=== PATIENT | male | born 1945 | race Caucasian/White ===

== ENCOUNTER 2017-01-22 16:39 | Inpatient (IN) | payer OTHER ==
[~2017-01-22] VITALS: Ht 182.9 cm; Wt 104.7 kg
[~2017-01-22 16:39] MED LIST: ASCORBIC ACID500 M3 PO; DITROPAN5 MG PO; TYLENOL W/COD1 COMBO PO; VALIUM5 MG PO
[2017-01-22 20:05] LABS: EOSINOPHIL (%) 1.5 % (0-5); EOSINOPHIL COUNT 0.2 K/uL (0-0.3); HEMATOCRIT 28.8 % (38.0-50.0); IMMATURE GRANULOCYTE (%) 1.5 % (0.0-0.7); IMMATURE GRANULOCYTE COUNT 0.2 K/uL; INSTRUMENT ABS NEUTROPHIL CT 10.9 K/uL; LYMPHOCYTE COUNT 0.9 K/uL (1.0-2.8); MCH 28.2 PG (29.0-34.0); MCHC 31.6 G/DL (30.0-36.0); MCV 89.2 FL (86-99); MEAN PLAT.VOLUME 9.3 uM^3 (9.0-12.4); MONOCYTE (%) 4.9 % (3-12); MONOCYTE COUNT 0.6 K/uL (0-0.8); NEUTROPHIL (%) 84.6 % (45-76); NEUTROPHIL COUNT 10.9 K/uL (1.8-6.4); PLATELET COUNT 210 K/uL (156-360); RBC DIS.WIDTH-CV 14.6 % (11.8-14.6); RBC DIS.WIDTH-SD 48.2 % (39-53); RED BLOOD COUNT 3.23 M/uL (4.00-5.50); WHITE BLOOD COUNT 12.9 K/uL (4.1-10.2)
[2017-01-22 20:15] LABS: CHLORIDE 111 mEq/L (99-109); POTASSIUM 3.8 mEq/L (3.7-5.4); SODIUM 137 mEq/L (136-147)
[2017-01-22 20:17] LABS: GLUCOSE 107 mg/dL (70-99)
[2017-01-22 20:18] LABS: ANION GAP 11 MEQ/L (2-14)
[2017-01-22 20:21] LABS: GFR ESTIMATE (CALCULATED) 30 mL/min/
[2017-01-22 20:22] LABS: UREA NITROGEN (BUN) 74 mg/dL (9-23)
[2017-01-22 20:28] LABS: TROP-I INTERPRETATION NEGATIVE; TROPONIN-I 0.08 ng/mL (0.0-0.30)
[2017-01-22 21:40] LABS: ADD MIUA? YES; BILIRUBIN NEGATIVE; BLOOD MODERATE; GLUCOSE (STRIP) NEGATIVE; KETONES NEGATIVE; LEUKOCYTES LARGE; NITRITE NEGATIVE; PROTEIN (STRIP) 100; UROBILINOGEN 0.2 MG/DL (0.2-1.0)
[2017-01-22 21:41] LABS: COLOR YELLOW ((YELLOW))
[2017-01-22 21:42] LABS: BACTERIA 4+ /HPF; CRYSTALS PRESENT; EPITHELIAL CELLS NONE SEEN /HPF; MUCUS NONE SEEN /LPF; UCUL ADDED? YES; WHITE BLOOD CELLS TNTC /HPF (0-5)
[2017-01-22 22:45] VITALS: BP 108/60
[2017-01-22 23:00] VITALS: BP 108/60
[2017-01-22] MEDS ORDERED: PANTOPRAZOLE SO40 MG PO (23:28)
[2017-01-22] MEDS ORDERED: SIMETHICONE80 MG PO (23:29)
[2017-01-22 23:30] VITALS: BP 94/43
[2017-01-22] MEDS ORDERED: GABAPENTIN400 MG PO (23:30)
[2017-01-22] MEDS ORDERED: AMLODIPINE BESY10 MG PO (23:30)
[2017-01-22] MEDS ORDERED: RANITIDINE HCL150 MG PO (23:31)
[2017-01-22] MEDS ORDERED: COLACE100 MG PO (23:32)
[2017-01-23] VITALS (15 sets, daily range): BP systolic 74–116; BP diastolic 47–68
[2017-01-23 00:39] LABS: METH RESISTANT S AUREUS PCR POSITIVE (NEGATIVE)
[2017-01-23 00:41] LABS: PROBE CHECK PASS
[2017-01-23 07:03] LABS: ANION GAP 10 MEQ/L (2-14); CHLORIDE 113 MEQ/L (99-109); MAGNESIUM 2.1 mg/dl (1.3-2.7); POTASSIUM 4.1 MEQ/L (3.7-5.4); SAMPLE HEMOLYSIS CHECK 0; SAMPLE ICTERIC CHECK 0; SAMPLE LIPEMIA CHECK 0; SODIUM 140 MEQ/L (136-147)
[2017-01-23 07:05] LABS: HEMATOCRIT 35.9 % (38.0-50.0); MCH 28.2 PG (29.0-34.0); MCHC 30.9 G/DL (30.0-36.0); MCV 91.1 FL (86-99); MEAN PLAT.VOLUME 9.4 uM^3 (9.0-12.4); PLATELET COUNT 222 K/uL (156-360); RBC DIS.WIDTH-CV 14.8 % (11.8-14.6); RBC DIS.WIDTH-SD 49.5 % (39-53); RED BLOOD COUNT 3.94 M/uL (4.00-5.50); WHITE BLOOD COUNT 13.3 K/uL (4.1-10.2)
[2017-01-23 07:09] LABS: GFR ESTIMATE (CALCULATED) 30 mL/min/; GLUCOSE 93 mg/dL (70-99); UREA NITROGEN (BUN) 72 mg/dL (9-23)
[2017-01-23 21:03] LABS: ANION GAP 10 MEQ/L (2-14); CHLORIDE 116 MEQ/L (99-109); POTASSIUM 4.5 MEQ/L (3.7-5.4); SAMPLE HEMOLYSIS CHECK 1; SAMPLE ICTERIC CHECK 0; SAMPLE LIPEMIA CHECK 0; SODIUM 140 MEQ/L (136-147)
[2017-01-23 21:09] LABS: GFR ESTIMATE (CALCULATED) 35 mL/min/; GLUCOSE 138 mg/dL (70-99); UREA NITROGEN (BUN) 67 mg/dL (9-23)
[2017-01-24 03:03] VITALS: BP 128/63
[2017-01-24 06:27] LABS: EOSINOPHIL (%) 2.6 % (0-5); EOSINOPHIL COUNT 0.2 K/uL (0-0.3); HEMATOCRIT 29.9 % (38.0-50.0); IMMATURE GRANULOCYTE COUNT 0.2 K/uL; INSTRUMENT ABS NEUTROPHIL CT 6.3 K/uL; LYMPHOCYTE COUNT 0.9 K/uL (1.0-2.8); MCHC 31.4 G/DL (30.0-36.0); MCV 92.3 FL (86-99); MEAN PLAT.VOLUME 9.2 uM^3 (9.0-12.4); MONOCYTE (%) 5.4 % (3-12); MONOCYTE COUNT 0.4 K/uL (0-0.8); NEUTROPHIL (%) 78.3 % (45-76); NEUTROPHIL COUNT 6.3 K/uL (1.8-6.4); PLATELET COUNT 216 K/uL (156-360); RBC DIS.WIDTH-CV 15.2 % (11.8-14.6); RBC DIS.WIDTH-SD 51.2 % (39-53); RED BLOOD COUNT 3.24 M/uL (4.00-5.50)
[2017-01-24 06:51] LABS: ANION GAP 9 MEQ/L (2-14); CHLORIDE 121 MEQ/L (99-109); GFR ESTIMATE (CALCULATED) 35 mL/min/; GLUCOSE 107 mg/dL (70-99); POTASSIUM 4.2 MEQ/L (3.7-5.4); SAMPLE HEMOLYSIS CHECK 0; SAMPLE ICTERIC CHECK 0; SAMPLE LIPEMIA CHECK 0; SODIUM 146 MEQ/L (136-147); UREA NITROGEN (BUN) 66 mg/dL (9-23)
[2017-01-24 07:44] VITALS: BP 132/78
[2017-01-24 12:01] VITALS: BP 109/59
[2017-01-24 15:40] VITALS: BP 122/71
[2017-01-24 20:29] VITALS: BP 110/60
[2017-01-25 06:44] LABS: BASOPHIL COUNT 0.1 K/uL (0-0.1); EOSINOPHIL (%) 3.9 % (0-5); EOSINOPHIL COUNT 0.3 K/uL (0-0.3); HEMATOCRIT 32.3 % (38.0-50.0); IMMATURE GRANULOCYTE COUNT 0.2 K/uL; INSTRUMENT ABS NEUTROPHIL CT 5.6 K/uL; MCH 27.8 PG (29.0-34.0); MCV 92.6 FL (86-99); MONOCYTE (%) 5.1 % (3-12); MONOCYTE COUNT 0.4 K/uL (0-0.8); NEUTROPHIL (%) 75.2 % (45-76); NEUTROPHIL COUNT 5.6 K/uL (1.8-6.4); PLATELET COUNT 200 K/uL (156-360); RBC DIS.WIDTH-CV 15.3 % (11.8-14.6); RBC DIS.WIDTH-SD 52.4 % (39-53); RED BLOOD COUNT 3.49 M/uL (4.00-5.50); WHITE BLOOD COUNT 7.5 K/uL (4.1-10.2)
[2017-01-25 07:06] LABS: ANION GAP 6 MEQ/L (2-14); CHLORIDE 117 MEQ/L (99-109); GFR ESTIMATE (CALCULATED) 35 mL/min/; GLUCOSE 113 mg/dL (70-99); POTASSIUM 3.9 MEQ/L (3.7-5.4); SAMPLE HEMOLYSIS CHECK 0; SAMPLE ICTERIC CHECK 0; SAMPLE LIPEMIA CHECK 0; SODIUM 142 MEQ/L (136-147); UREA NITROGEN (BUN) 57 mg/dL (9-23); VANCOMYCIN, TROUGH 18.2 MCG/ML (10-20)
[2017-01-25 07:42] VITALS: BP 120/68
[2017-01-25 12:34] VITALS: BP 130/66
[2017-01-25 16:56] VITALS: BP 132/70
[2017-01-25 21:20] VITALS: BP 110/70
[2017-01-26 00:17] VITALS: BP 125/70
[2017-01-26 01:26] LABS: EOSINOPHIL (%) 3.2 % (0-5); EOSINOPHIL COUNT 0.2 K/uL (0-0.3); HEMATOCRIT 26.7 % (38.0-50.0); IMMATURE GRANULOCYTE (%) 1.4 % (0.0-0.7); IMMATURE GRANULOCYTE COUNT 0.1 K/uL; INSTRUMENT ABS NEUTROPHIL CT 5.7 K/uL; LYMPHOCYTE COUNT 0.8 K/uL (1.0-2.8); MCH 28.2 PG (29.0-34.0); MCHC 31.8 G/DL (30.0-36.0); MCV 88.7 FL (86-99); MEAN PLAT.VOLUME 8.7 uM^3 (9.0-12.4); MONOCYTE (%) 4.9 % (3-12); MONOCYTE COUNT 0.4 K/uL (0-0.8); NEUTROPHIL (%) 78.7 % (45-76); NEUTROPHIL COUNT 5.7 K/uL (1.8-6.4); PLATELET COUNT 199 K/uL (156-360); RBC DIS.WIDTH-CV 15.2 % (11.8-14.6); RBC DIS.WIDTH-SD 48.5 % (39-53); RED BLOOD COUNT 3.01 M/uL (4.00-5.50); WHITE BLOOD COUNT 7.2 K/uL (4.1-10.2)
[2017-01-26 01:34] LABS: CHLORIDE 114 mEq/L (99-109); POTASSIUM 3.4 mEq/L (3.7-5.4); SODIUM 139 mEq/L (136-147)
[2017-01-26 01:36] LABS: GLUCOSE 128 mg/dL (70-99)
[2017-01-26 01:37] LABS: ANION GAP 8 MEQ/L (2-14)
[2017-01-26 01:40] LABS: GFR ESTIMATE (CALCULATED) 42 mL/min/; UREA NITROGEN (BUN) 52 mg/dL (9-23)
[2017-01-26 04:20] VITALS: BP 112/64
[2017-01-26 06:24] LABS: EOSINOPHIL (%) 3.7 % (0-5); EOSINOPHIL COUNT 0.3 K/uL (0-0.3); HEMATOCRIT 28.9 % (38.0-50.0); IMMATURE GRANULOCYTE (%) 1.4 % (0.0-0.7); IMMATURE GRANULOCYTE COUNT 0.1 K/uL; INSTRUMENT ABS NEUTROPHIL CT 5.5 K/uL; MCH 27.6 PG (29.0-34.0); MCHC 30.8 G/DL (30.0-36.0); MCV 89.5 FL (86-99); MONOCYTE (%) 5.2 % (3-12); MONOCYTE COUNT 0.4 K/uL (0-0.8); NEUTROPHIL (%) 75.2 % (45-76); NEUTROPHIL COUNT 5.5 K/uL (1.8-6.4); PLATELET COUNT 199 K/uL (156-360); RBC DIS.WIDTH-CV 15.2 % (11.8-14.6); RBC DIS.WIDTH-SD 49.1 % (39-53); RED BLOOD COUNT 3.23 M/uL (4.00-5.50); WHITE BLOOD COUNT 7.3 K/uL (4.1-10.2)
[2017-01-26 06:45] LABS: ANION GAP 8 MEQ/L (2-14); CHLORIDE 110 MEQ/L (99-109); GFR ESTIMATE (CALCULATED) 42 mL/min/; GLUCOSE 104 mg/dL (70-99); POTASSIUM 3.5 MEQ/L (3.7-5.4); SAMPLE HEMOLYSIS CHECK 0; SAMPLE ICTERIC CHECK 0; SAMPLE LIPEMIA CHECK 0; SODIUM 138 MEQ/L (136-147); UREA NITROGEN (BUN) 50 mg/dL (9-23)
[2017-01-26 09:24] VITALS: BP 134/64
[2017-01-26 11:49] VITALS: BP 111/59
[2017-01-26 16:39] VITALS: BP 131/73
[2017-01-27 00:53] VITALS: BP 113/75
[2017-01-27 05:23] VITALS: BP 167/81
[2017-01-27 06:33] LABS: ANION GAP 3 MEQ/L (2-14); CHLORIDE 105 MEQ/L (99-109); GFR ESTIMATE (CALCULATED) 45 mL/min/; GLUCOSE 111 mg/dL (70-99); POTASSIUM 3.3 MEQ/L (3.7-5.4); SAMPLE HEMOLYSIS CHECK 0; SAMPLE ICTERIC CHECK 0; SAMPLE LIPEMIA CHECK 0; SODIUM 134 MEQ/L (136-147); UREA NITROGEN (BUN) 42 mg/dL (9-23)
[2017-01-27 07:47] VITALS: BP 138/90
[2017-01-27 11:27] VITALS: BP 122/72
[2017-01-27 16:33] VITALS: BP 136/86
[2017-01-28 04:17] VITALS: BP 128/76
[2017-01-28 07:04] LABS: BASOPHIL COUNT 0.1 K/uL (0-0.1); EOSINOPHIL (%) 1.3 % (0-5); EOSINOPHIL COUNT 0.2 K/uL (0-0.3); HEMATOCRIT 31.1 % (38.0-50.0); IMMATURE GRANULOCYTE (%) 1.4 % (0.0-0.7); IMMATURE GRANULOCYTE COUNT 0.2 K/uL; INSTRUMENT ABS NEUTROPHIL CT 11.2 K/uL; MCH 27.3 PG (29.0-34.0); MCHC 31.2 G/DL (30.0-36.0); MCV 87.6 FL (86-99); MEAN PLAT.VOLUME 8.7 uM^3 (9.0-12.4); MONOCYTE (%) 4.3 % (3-12); MONOCYTE COUNT 0.6 K/uL (0-0.8); NEUTROPHIL (%) 84.9 % (45-76); NEUTROPHIL COUNT 11.2 K/uL (1.8-6.4); PLATELET COUNT 179 K/uL (156-360); RBC DIS.WIDTH-SD 47.9 % (39-53); RED BLOOD COUNT 3.55 M/uL (4.00-5.50); WHITE BLOOD COUNT 13.2 K/uL (4.1-10.2)
[2017-01-28 07:50] LABS: ANION GAP 9 MEQ/L (2-14); CHLORIDE 106 MEQ/L (99-109); GFR ESTIMATE (CALCULATED) 49 mL/min/; GLUCOSE 92 mg/dL (70-99); POTASSIUM 3.9 MEQ/L (3.7-5.4); SAMPLE HEMOLYSIS CHECK 0; SAMPLE ICTERIC CHECK 0; SAMPLE LIPEMIA CHECK 0; SODIUM 137 MEQ/L (136-147); UREA NITROGEN (BUN) 41 mg/dL (9-23)
[2017-01-28 08:14] VITALS: BP 124/65
[2017-01-28 10:29] VITALS: BP 115/58
[2017-01-28 16:19] VITALS: BP 158/73
[2017-01-28 20:20] VITALS: BP 123/70
[2017-01-29 05:57] LABS: BASOPHIL COUNT 0.1 K/uL (0-0.1); EOSINOPHIL (%) 2.7 % (0-5); EOSINOPHIL COUNT 0.3 K/uL (0-0.3); HEMATOCRIT 28.5 % (38.0-50.0); IMMATURE GRANULOCYTE (%) 2.1 % (0.0-0.7); IMMATURE GRANULOCYTE COUNT 0.2 K/uL; INSTRUMENT ABS NEUTROPHIL CT 8.3 K/uL; LYMPHOCYTE COUNT 1.1 K/uL (1.0-2.8); MCH 28.4 PG (29.0-34.0); MCHC 31.9 G/DL (30.0-36.0); MCV 89.1 FL (86-99); MEAN PLAT.VOLUME 8.9 uM^3 (9.0-12.4); MONOCYTE (%) 5.4 % (3-12); MONOCYTE COUNT 0.6 K/uL (0-0.8); NEUTROPHIL (%) 78.9 % (45-76); NEUTROPHIL COUNT 8.3 K/uL (1.8-6.4); PLATELET COUNT 180 K/uL (156-360); RBC DIS.WIDTH-CV 15.6 % (11.8-14.6); RBC DIS.WIDTH-SD 50.2 % (39-53); WHITE BLOOD COUNT 10.5 K/uL (4.1-10.2)
[2017-01-29 06:25] LABS: ANION GAP 7 MEQ/L (2-14); CHLORIDE 110 MEQ/L (99-109); GFR ESTIMATE (CALCULATED) 49 mL/min/; GLUCOSE 90 mg/dL (70-99); POTASSIUM 3.9 MEQ/L (3.7-5.4); SAMPLE HEMOLYSIS CHECK 0; SAMPLE ICTERIC CHECK 0; SAMPLE LIPEMIA CHECK 0; SODIUM 142 MEQ/L (136-147); UREA NITROGEN (BUN) 37 mg/dL (9-23)
[2017-01-29 07:39] VITALS: BP 138/82
[2017-01-29] MEDS ORDERED: CEFDINIR300 MG PO (12:52)
== END 2017-01-29 15:52 | disposition home or self-care (01) | DRG 871 ==
LOC: EME → EDBD 16:39 → EME 16:39 → EDOF 20:36 → 4WEST 20:36 → 5EAST 20:36 → ENRESERV 20:42 → 4WEST 22:33 → ENRESERV 01-23 16:11 → 5EAST 01-23 19:18
PROVIDERS: Emergency Medicine; Hospitalist; Internal Medicine; Internal Medicine Critical Care Medicine; Internal Medicine Nephrology; Specialist; Student in an Organized Health Care Education/Training Program
DX: A41.9 Sepsis, unspecified organism (principal); N31.9 Neuromuscular dysfunction of bladder, unspecified; J18.9 Pneumonia, unspecified organism; N17.0 Acute kidney failure with tubular necrosis; N18.3 Chronic kidney disease, stage 3 (moderate); N50.89 Other specified disorders of the male genital organs; I12.9 Hypertensive chronic kidney disease with stage 1 through stage 4 chronic kidney disease, or unspecified chronic kidney disease; G82.20 Paraplegia, unspecified; K21.9 Gastro-esophageal reflux disease without esophagitis; E87.2 Acidosis; G93.40 Encephalopathy, unspecified; N28.1 Cyst of kidney, acquired; Z89.611 Acquired absence of right leg above knee; Z96.0 Presence of urogenital implants; E86.0 Dehydration; J81.1 Chronic pulmonary edema; R65.20 Severe sepsis without septic shock; I48.91 Unspecified atrial fibrillation; E66.9 Obesity, unspecified; Z89.612 Acquired absence of left leg above knee; Z68.31 Body mass index [BMI] 31.0-31.9, adult; Z87.442 Personal history of urinary calculi; Z74.01 Bed confinement status; Z87.891 Personal history of nicotine dependence
CPT/HCPCS: 71010; 76770; 80048; 80048 91; 80202; 81003; 83605; 83735; 83785 90; 83880; 84100; 84484; 85025; 85025 91; 85027; 87040; 87086; 87641; 93005; 94799; 99281; 99285; J0456; J0692; J0696; J1644; J3370; J7030; J7040; J7050; J7070

== ENCOUNTER 2017-01-31 10:40 | Inpatient (IN) | payer OTHER ==
[~2017-01-31] VITALS: Ht 182.9 cm; Wt 105.5 kg
[~2017-01-31 10:40] MED LIST changes: +AMLODIPINE BESY10 MG PO; +CEFDINIR300 MG PO; +COLACE100 MG PO; +GABAPENTIN400 MG PO; +PANTOPRAZOLE SO40 MG PO; +RANITIDINE HCL150 MG PO; +SIMETHICONE80 MG PO
[2017-01-31 10:45] LABS: BASE EXCESS 1.2 mEq/L (-3 to +3); BICARBONATE 27.1 mEq/L (22-26); CARBOXY HGB 2.5 % (0-5); COMMENTS - BLOOD GASES NEG A+C+; DEVICE VENT; FI02 80 %; METHEMOGLOBIN 3.4 % (0-1.5); MODE SPONT; PCO2 48 mm Hg (35-45); PO2 263 mm Hg (80-100); SITE RR; TOTAL RESP RATE 15 resp/min; pH 7.36 (7.35-7.45)
[2017-01-31 10:46] LABS: PEEP 6 CM/H20; PRES. SUPPORT 12 CM/H2O
[2017-01-31 10:51] LABS: HEMATOCRIT 30.7 % (38.0-50.0); MCH 27.9 PG (29.0-34.0); MCHC 30.3 G/DL (30.0-36.0); MCV 92.2 FL (86-99); MEAN PLAT.VOLUME 9.2 uM^3 (9.0-12.4); PLATELET COUNT 201 K/uL (156-360); RBC DIS.WIDTH-SD 53.5 % (39-53); RED BLOOD COUNT 3.33 M/uL (4.00-5.50); WHITE BLOOD COUNT 11.5 K/uL (4.1-10.2)
[2017-01-31 10:58] LABS: CHLORIDE 110 mEq/L (99-109); POTASSIUM 3.6 mEq/L (3.7-5.4); SODIUM 144 mEq/L (136-147)
[2017-01-31 11:00] LABS: GLUCOSE 103 mg/dL (70-99)
[2017-01-31 11:01] LABS: ANION GAP 10 MEQ/L (2-14)
[2017-01-31 11:02] LABS: TOTAL BILIRUBIN 0.2 mg/dL (0.0-1.0)
[2017-01-31 11:04] LABS: ALKALINE PHOSPHATASE 76 IU/L (3-129); GFR ESTIMATE (CALCULATED) 49 mL/min/
[2017-01-31 11:05] LABS: UREA NITROGEN (BUN) 34 mg/dL (9-23)
[2017-01-31 11:10] LABS: TROP-I INTERPRETATION NEGATIVE; TROPONIN-I 0.09 ng/mL (0.0-0.30)
[2017-01-31 13:59] LABS: BASE EXCESS 0.3 mEq/L (-3 to +3); METHEMOGLOBIN 2.9 % (0-1.5); PCO2 46 mm Hg (35-45); pH 7.36 (7.35-7.45)
[2017-01-31 14:00] LABS: COMMENTS - BLOOD GASES NEG A+C+; DEVICE VENT; FI02 40 %; MODE SPONT; PEEP 5 CM/H20; PO2 104 mm Hg (80-100); PRES. SUPPORT 10 CM/H2O; SITE RR; TOTAL RESP RATE 15 resp/min
[2017-01-31] MEDS ORDERED: OMNICEF300 MG PO (16:49)
[2017-01-31] MEDS ORDERED: TYLENOL EXTRA500 MG PO (16:55)
[2017-01-31 18:00] LABS: BASE EXCESS -0.2 mEq/L (-3 to +3); BICARBONATE 25.4 mEq/L (22-26); CARBOXY HGB 1.7 % (0-5); METHEMOGLOBIN 3.3 % (0-1.5); PCO2 45 mm Hg (35-45); pH 7.36 (7.35-7.45)
[2017-01-31 18:01] LABS: COMMENTS - BLOOD GASES A+C+; DEVICE 840; FI02 40 %; MODE SPONT MASK; PO2 129 mm Hg (80-100); SITE RR
[2017-01-31 18:02] LABS: TOTAL RESP RATE 15 resp/min
[2017-01-31 20:45] VITALS: BP 115/66
[2017-01-31 21:00] VITALS: BP 107/75
[2017-01-31 21:30] VITALS: BP 115/66
[2017-01-31 21:45] LABS: METH RESISTANT S AUREUS PCR POSITIVE (NEGATIVE)
[2017-01-31 21:51] LABS: PROBE CHECK PASS; SPECIMEN PROCESSING CONTROL PASS
[2017-01-31 22:00] VITALS: BP 105/64
[2017-01-31 23:00] VITALS: BP 70/38
[2017-02-01] VITALS (24 sets, daily range): BP systolic 76–124; BP diastolic 44–76
[2017-02-01 03:23] LABS: BASE EXCESS 0.1 mEq/L (-3 to +3); BICARBONATE 26.7 mEq/L (22-26); CARBOXY HGB 1.6 % (0-5); COMMENTS - BLOOD GASES C+A+; DEVICE NC; METHEMOGLOBIN 3.2 % (0-1.5); O2 FLOW 4 L/MIN; PCO2 53 mm Hg (35-45); PO2 68 mm Hg (80-100); SITE RR; pH 7.31 (7.35-7.45)
[2017-02-01 03:24] LABS: TOTAL RESP RATE 15 resp/min
[2017-02-01 06:26] LABS: MCH 27.6 PG (29.0-34.0); MCHC 29.3 G/DL (30.0-36.0); MCV 94.4 FL (86-99); MEAN PLAT.VOLUME 9.3 uM^3 (9.0-12.4); PLATELET COUNT 161 K/uL (156-360); RBC DIS.WIDTH-CV 16.1 % (11.8-14.6); RBC DIS.WIDTH-SD 55.3 % (39-53); RED BLOOD COUNT 2.86 M/uL (4.00-5.50); WHITE BLOOD COUNT 8.4 K/uL (4.1-10.2)
[2017-02-01 07:00] LABS: ALKALINE PHOSPHATASE 45 IU/L (3-129); ANION GAP 5 MEQ/L (2-14); CHLORIDE 114 MEQ/L (99-109); GFR ESTIMATE (CALCULATED) 53 mL/min/; GLUCOSE 80 mg/dL (70-99); POTASSIUM 3.6 MEQ/L (3.7-5.4); SAMPLE HEMOLYSIS CHECK 0; SAMPLE ICTERIC CHECK 0; SAMPLE LIPEMIA CHECK 0; SODIUM 144 MEQ/L (136-147); TOTAL BILIRUBIN 0.3 MG/DL (0.0-1.0); UREA NITROGEN (BUN) 31 mg/dL (9-23)
[2017-02-01 08:25] LABS: BASE EXCESS -2.4 mEq/L (-3 to +3); BICARBONATE 24.9 mEq/L (22-26); CARBOXY HGB 1.8 % (0-5); METHEMOGLOBIN 3.1 % (0-1.5); PCO2 53 mm Hg (35-45); PO2 61 mm Hg (80-100); SITE RR; pH 7.28 (7.35-7.45)
[2017-02-01 08:26] LABS: COMMENTS - BLOOD GASES A+C+; DEVICE NC; O2 FLOW 2 L/MIN
[2017-02-01 08:37] LABS: INTERNAL CONTROL VALID? YES
[2017-02-02] VITALS (24 sets, daily range): BP systolic 94–132; BP diastolic 48–78
[2017-02-02 05:08] LABS: BASE EXCESS -0.4 mEq/L (-3 to +3); BICARBONATE 24.9 mEq/L (22-26); CARBOXY HGB 1.7 % (0-5); COMMENTS - BLOOD GASES C+A+; DEVICE NC; O2 FLOW 4 L/MIN; PCO2 43 mm Hg (35-45); PO2 61 mm Hg (80-100); SITE RR; pH 7.37 (7.35-7.45)
[2017-02-02 06:30] LABS: ALKALINE PHOSPHATASE 46 IU/L (3-129); ANION GAP 6 MEQ/L (2-14); CHLORIDE 115 MEQ/L (99-109); GFR ESTIMATE (CALCULATED) 42 mL/min/; GLUCOSE 96 mg/dL (70-99); MAGNESIUM 1.5 mg/dl (1.3-2.7); POTASSIUM 4.2 MEQ/L (3.7-5.4); SAMPLE HEMOLYSIS CHECK 1; SAMPLE ICTERIC CHECK 0; SAMPLE LIPEMIA CHECK 0; SODIUM 144 MEQ/L (136-147); TOTAL BILIRUBIN 0.3 MG/DL (0.0-1.0); UREA NITROGEN (BUN) 31 mg/dL (9-23)
[2017-02-02 07:00] LABS: EOSINOPHIL (%) 2.9 % (0-5); EOSINOPHIL COUNT 0.3 K/uL (0-0.3); HEMATOCRIT 26.3 % (38.0-50.0); IMMATURE GRANULOCYTE (%) 1.3 % (0.0-0.7); IMMATURE GRANULOCYTE COUNT 0.1 K/uL; INSTRUMENT ABS NEUTROPHIL CT 6.8 K/uL; LYMPHOCYTE COUNT 1.3 K/uL (1.0-2.8); MCV 93.3 FL (86-99); MEAN PLAT.VOLUME 9.3 uM^3 (9.0-12.4); MONOCYTE (%) 5.9 % (3-12); MONOCYTE COUNT 0.5 K/uL (0-0.8); NEUTROPHIL (%) 75.7 % (45-76); NEUTROPHIL COUNT 6.8 K/uL (1.8-6.4); PLATELET COUNT 168 K/uL (156-360); RBC DIS.WIDTH-CV 16.5 % (11.8-14.6); RBC DIS.WIDTH-SD 55.7 % (39-53); RED BLOOD COUNT 2.82 M/uL (4.00-5.50)
[2017-02-02 07:22] LABS: NO-CHARGE AST (GOT) 7 IU/L (15-37); POTASSIUM 3.9 MEQ/L (3.7-5.4)
[2017-02-02 19:08] LABS: BASE EXCESS -3.2 mEq/L (-3 to +3); CARBOXY HGB 1.7 % (0-5); METHEMOGLOBIN 3.3 % (0-1.5); PCO2 39 mm Hg (35-45); pH 7.36 (7.35-7.45)
[2017-02-02 19:09] LABS: COMMENTS - BLOOD GASES A+C+; DEVICE NASAL CAN; O2 FLOW 4 L/MIN; PO2 94 mm Hg (80-100); SITE RR; TOTAL RESP RATE 15 resp/min
[2017-02-03] VITALS (19 sets, daily range): BP systolic 109–160; BP diastolic 63–90
[2017-02-03 05:31] LABS: BASE EXCESS -3.4 mEq/L (-3 to +3); BICARBONATE 22.1 mEq/L (22-26); CARBOXY HGB 1.5 % (0-5); COMMENTS - BLOOD GASES A+C+; DEVICE VENTI MASK; FI02 40 %; METHEMOGLOBIN 3.4 % (0-1.5); O2 FLOW 8 L/MIN; PCO2 41 mm Hg (35-45); PO2 85 mm Hg (80-100); SITE RR; TOTAL RESP RATE 16 resp/min; pH 7.34 (7.35-7.45)
[2017-02-03 06:29] LABS: EOSINOPHIL (%) 0 % (0-5); HEMATOCRIT 27.4 % (38.0-50.0); IMMATURE GRANULOCYTE (%) 1.3 % (0.0-0.7); IMMATURE GRANULOCYTE COUNT 0.1 K/uL; INSTRUMENT ABS NEUTROPHIL CT 6.5 K/uL; LYMPHOCYTE COUNT 0.4 K/uL (1.0-2.8); MCH 27.5 PG (29.0-34.0); MCHC 29.6 G/DL (30.0-36.0); MCV 92.9 FL (86-99); MEAN PLAT.VOLUME 9.2 uM^3 (9.0-12.4); MONOCYTE (%) 0.6 % (3-12); NEUTROPHIL (%) 91.8 % (45-76); NEUTROPHIL COUNT 6.5 K/uL (1.8-6.4); PLATELET COUNT 187 K/uL (156-360); RBC DIS.WIDTH-CV 16.3 % (11.8-14.6); RBC DIS.WIDTH-SD 54.8 % (39-53); RED BLOOD COUNT 2.95 M/uL (4.00-5.50); WHITE BLOOD COUNT 7.1 K/uL (4.1-10.2)
[2017-02-03 06:54] LABS: ANION GAP 12 MEQ/L (2-14); CHLORIDE 112 MEQ/L (99-109); GFR ESTIMATE (CALCULATED) 37 mL/min/; GLUCOSE 144 mg/dL (70-99); POTASSIUM 4.1 MEQ/L (3.7-5.4); SAMPLE HEMOLYSIS CHECK 0; SAMPLE ICTERIC CHECK 0; SAMPLE LIPEMIA CHECK 0; SODIUM 144 MEQ/L (136-147); UREA NITROGEN (BUN) 34 mg/dL (9-23)
[2017-02-03 06:55] LABS: MAGNESIUM 1.9 mg/dl (1.3-2.7)
[2017-02-04] VITALS (7 sets, daily range): BP systolic 117–176; BP diastolic 70–108
[2017-02-04 08:04] LABS: ANION GAP 11 MEQ/L (2-14); CHLORIDE 114 MEQ/L (99-109); POTASSIUM 3.8 MEQ/L (3.7-5.4); SAMPLE HEMOLYSIS CHECK 0; SAMPLE ICTERIC CHECK 0; SAMPLE LIPEMIA CHECK 0; SODIUM 145 MEQ/L (136-147); TOTAL BILIRUBIN 0.3 MG/DL (0.0-1.0)
[2017-02-04 08:21] LABS: ALKALINE PHOSPHATASE 46 IU/L (3-129); GFR ESTIMATE (CALCULATED) 37 mL/min/; GLUCOSE 144 mg/dL (70-99); UREA NITROGEN (BUN) 38 mg/dL (9-23)
[2017-02-05 04:08] VITALS: BP 127/74
[2017-02-05 05:53] LABS: HEMATOCRIT 27.6 % (38.0-50.0); MCH 28.6 PG (29.0-34.0); MCHC 31.5 G/DL (30.0-36.0); MCV 90.8 FL (86-99); MEAN PLAT.VOLUME 8.9 uM^3 (9.0-12.4); PLATELET COUNT 195 K/uL (156-360); RBC DIS.WIDTH-CV 16.7 % (11.8-14.6); RBC DIS.WIDTH-SD 54.4 % (39-53); RED BLOOD COUNT 3.04 M/uL (4.00-5.50); WHITE BLOOD COUNT 10.9 K/uL (4.1-10.2)
[2017-02-05 06:38] LABS: ANION GAP 6 MEQ/L (2-14); CHLORIDE 108 MEQ/L (99-109); GFR ESTIMATE (CALCULATED) 35 mL/min/; SAMPLE HEMOLYSIS CHECK 1; SAMPLE ICTERIC CHECK 0; SAMPLE LIPEMIA CHECK 0; SODIUM 139 MEQ/L (136-147); UREA NITROGEN (BUN) 41 mg/dL (9-23)
[2017-02-05 06:42] LABS: GLUCOSE 103 mg/dL (70-99)
[2017-02-05 07:56] VITALS: BP 122/76
[2017-02-05 10:24] LABS: BASE EXCESS -3.9 mEq/L (-3 to +3); BICARBONATE 21.6 mEq/L (22-26); CARBOXY HGB 1.5 % (0-5); METHEMOGLOBIN 2.8 % (0-1.5); PCO2 40 mm Hg (35-45); PO2 76 mm Hg (80-100); pH 7.34 (7.35-7.45)
[2017-02-05 10:26] LABS: COMMENTS - BLOOD GASES A+C+; DEVICE NC; O2 FLOW 4 L/MIN; SITE LR; TOTAL RESP RATE 20 resp/min
[2017-02-05 11:35] VITALS: BP 109/57
[2017-02-05 15:46] VITALS: BP 116/59
[2017-02-05 20:12] VITALS: BP 114/66
[2017-02-06 00:18] VITALS: BP 122/72
[2017-02-06 03:39] VITALS: BP 128/75
[2017-02-06 07:32] LABS: EOSINOPHIL (%) 0 % (0-5); HEMATOCRIT 30.9 % (38.0-50.0); IMMATURE GRANULOCYTE (%) 1.2 % (0.0-0.7); IMMATURE GRANULOCYTE COUNT 0.1 K/uL; INSTRUMENT ABS NEUTROPHIL CT 10.7 K/uL; LYMPHOCYTE COUNT 0.4 K/uL (1.0-2.8); MCH 27.7 PG (29.0-34.0); MCHC 30.7 G/DL (30.0-36.0); MCV 90.1 FL (86-99); MEAN PLAT.VOLUME 8.8 uM^3 (9.0-12.4); MONOCYTE COUNT 0.2 K/uL (0-0.8); NEUTROPHIL (%) 93.5 % (45-76); NEUTROPHIL COUNT 10.7 K/uL (1.8-6.4); PLATELET COUNT 182 K/uL (156-360); RBC DIS.WIDTH-CV 16.4 % (11.8-14.6); RBC DIS.WIDTH-SD 53.1 % (39-53); RED BLOOD COUNT 3.43 M/uL (4.00-5.50); WHITE BLOOD COUNT 11.4 K/uL (4.1-10.2)
[2017-02-06 07:51] LABS: ANION GAP 7 MEQ/L (2-14); CHLORIDE 107 MEQ/L (99-109); GFR ESTIMATE (CALCULATED) 33 mL/min/; GLUCOSE 95 mg/dL (70-99); POTASSIUM 3.7 MEQ/L (3.7-5.4); SAMPLE HEMOLYSIS CHECK 0; SAMPLE ICTERIC CHECK 0; SAMPLE LIPEMIA CHECK 0; SODIUM 137 MEQ/L (136-147); UREA NITROGEN (BUN) 40 mg/dL (9-23)
[2017-02-06 08:00] VITALS: BP 135/83
[2017-02-06 11:56] VITALS: BP 111/72
[2017-02-06 16:00] VITALS: BP 134/76
[2017-02-06 20:39] VITALS: BP 125/81
[2017-02-07 01:36] VITALS: BP 105/73
[2017-02-07 05:22] VITALS: BP 145/81
[2017-02-07 08:30] VITALS: BP 122/71
[2017-02-07 09:01] LABS: HEMATOCRIT 29.6 % (38.0-50.0); MCHC 31.1 G/DL (30.0-36.0); MCV 90.2 FL (86-99); MEAN PLAT.VOLUME 8.5 uM^3 (9.0-12.4); PLATELET COUNT 205 K/uL (156-360); RBC DIS.WIDTH-CV 16.7 % (11.8-14.6); RBC DIS.WIDTH-SD 55.3 % (39-53); RED BLOOD COUNT 3.28 M/uL (4.00-5.50); WHITE BLOOD COUNT 13.4 K/uL (4.1-10.2)
[2017-02-07 09:10] LABS: PROTHROMBIN TIME 11.5 SEC (10.2-12.9)
[2017-02-07 09:13] LABS: PTT 31.4 SEC (25-37)
[2017-02-07 10:44] LABS: ANION GAP 12 MEQ/L (2-14); CHLORIDE 110 MEQ/L (99-109); GFR ESTIMATE (CALCULATED) 35 mL/min/; GLUCOSE 78 mg/dL (70-99); POTASSIUM 3.8 MEQ/L (3.7-5.4); SAMPLE HEMOLYSIS CHECK 0; SAMPLE ICTERIC CHECK 0; SAMPLE LIPEMIA CHECK 0; SODIUM 139 MEQ/L (136-147); UREA NITROGEN (BUN) 41 mg/dL (9-23)
[2017-02-07 16:40] LABS: TYPE OF FLUID PLEURAL
[2017-02-07 16:56] VITALS: BP 115/60
[2017-02-07 17:31] LABS: BODY FLUID EOSINOPHILS 0 % (0-25); BODY FLUID RBC'S < 1000 /MM^3 (0-100); BODY FLUID WBC'S 47 /MM^3 (0-500); MONONUCLEAR WBC'S 93 %; POLYNUCLEAR WBC'S 7 % (0-25)
[2017-02-07 17:59] LABS: BODY FLUID LDH 56 IU/L; BODY FLUID PROTEIN < 3.0 G/DL
[2017-02-07 19:30] VITALS: BP 137/90
[2017-02-08 00:36] VITALS: BP 133/69
[2017-02-08 04:50] LABS: CHLORIDE 112 mEq/L (99-109); POTASSIUM 3.7 mEq/L (3.7-5.4); SODIUM 139 mEq/L (136-147)
[2017-02-08 04:51] LABS: GLUCOSE 87 mg/dL (70-99)
[2017-02-08 04:53] LABS: ANION GAP 11 MEQ/L (2-14)
[2017-02-08 04:55] LABS: GFR ESTIMATE (CALCULATED) 30 mL/min/
[2017-02-08 04:56] LABS: UREA NITROGEN (BUN) 43 mg/dL (9-23)
[2017-02-08 04:58] VITALS: BP 121/65
[2017-02-08 08:30] VITALS: BP 128/74
[2017-02-08 11:30] VITALS: BP 92/50
[2017-02-08 15:19] LABS: MAGNESIUM 1.6 mg/dL (1.3-2.7)
[2017-02-08 15:22] LABS: TOTAL BILIRUBIN 0.2 mg/dL (0.0-1.0)
[2017-02-08 15:23] LABS: ALKALINE PHOSPHATASE 44 IU/L (3-129)
[2017-02-08 15:26] LABS: DIRECT BILIRUBIN 0.2 mg/dL (0.0-0.3)
[2017-02-08 19:33] VITALS: BP 126/74
[2017-02-08 23:38] VITALS: BP 123/93
[2017-02-09] VITALS (7 sets, daily range): BP systolic 105–145; BP diastolic 61–79
[2017-02-09 04:47] LABS: EOSINOPHIL (%) 0.1 % (0-5); HEMATOCRIT 24.8 % (38.0-50.0); IMMATURE GRANULOCYTE COUNT 0.1 K/uL; INSTRUMENT ABS NEUTROPHIL CT 8.7 K/uL; LYMPHOCYTE COUNT 0.5 K/uL (1.0-2.8); MCH 27.8 PG (29.0-34.0); MCHC 31.9 G/DL (30.0-36.0); MCV 87.3 FL (86-99); MEAN PLAT.VOLUME 8.9 uM^3 (9.0-12.4); MONOCYTE (%) 4.3 % (3-12); MONOCYTE COUNT 0.4 K/uL (0-0.8); NEUTROPHIL (%) 89.4 % (45-76); NEUTROPHIL COUNT 8.7 K/uL (1.8-6.4); PLATELET COUNT 174 K/uL (156-360); RBC DIS.WIDTH-CV 16.8 % (11.8-14.6); RBC DIS.WIDTH-SD 52.6 % (39-53); RED BLOOD COUNT 2.84 M/uL (4.00-5.50); WHITE BLOOD COUNT 9.7 K/uL (4.1-10.2)
[2017-02-09 05:07] LABS: CHLORIDE 113 mEq/L (99-109); POTASSIUM 3.3 mEq/L (3.7-5.4); SODIUM 142 mEq/L (136-147)
[2017-02-09 05:10] LABS: GLUCOSE 108 mg/dL (70-99)
[2017-02-09 05:11] LABS: ANION GAP 12 MEQ/L (2-14)
[2017-02-09 05:13] LABS: ALKALINE PHOSPHATASE 38 IU/L (3-129); GFR ESTIMATE (CALCULATED) 30 mL/min/
[2017-02-09 05:14] LABS: UREA NITROGEN (BUN) 44 mg/dL (9-23)
[2017-02-09 05:28] LABS: TOTAL BILIRUBIN 0.3 mg/dL (0.0-1.0)
[2017-02-09 08:38] LABS: MAGNESIUM 1.7 mg/dL (1.3-2.7)
[2017-02-10] VITALS (7 sets, daily range): BP systolic 115–160; BP diastolic 64–77
[2017-02-10 08:18] LABS: HEMATOCRIT 25.1 % (38.0-50.0); MCHC 32.3 G/DL (30.0-36.0); MEAN PLAT.VOLUME 8.5 uM^3 (9.0-12.4); PLATELET COUNT 162 K/uL (156-360); RBC DIS.WIDTH-CV 17.6 % (11.8-14.6); RBC DIS.WIDTH-SD 57.2 % (39-53); RED BLOOD COUNT 2.79 M/uL (4.00-5.50); WHITE BLOOD COUNT 11.6 K/uL (4.1-10.2)
[2017-02-10 08:50] LABS: ANION GAP 10 MEQ/L (2-14); CHLORIDE 112 MEQ/L (99-109); GFR ESTIMATE (CALCULATED) 30 mL/min/; GLUCOSE 96 mg/dL (70-99); POTASSIUM 3.8 MEQ/L (3.7-5.4); SAMPLE HEMOLYSIS CHECK 0; SAMPLE ICTERIC CHECK 0; SAMPLE LIPEMIA CHECK 0; SODIUM 146 MEQ/L (136-147); UREA NITROGEN (BUN) 45 mg/dL (9-23)
[2017-02-11 04:10] VITALS: BP 165/81
[2017-02-11 06:45] LABS: HEMATOCRIT 25.5 % (38.0-50.0); MCH 28.8 PG (29.0-34.0); MCHC 32.2 G/DL (30.0-36.0); MCV 89.5 FL (86-99); MEAN PLAT.VOLUME 8.9 uM^3 (9.0-12.4); PLATELET COUNT 168 K/uL (156-360); RBC DIS.WIDTH-CV 17.7 % (11.8-14.6); RBC DIS.WIDTH-SD 57.4 % (39-53); RED BLOOD COUNT 2.85 M/uL (4.00-5.50); WHITE BLOOD COUNT 8.9 K/uL (4.1-10.2)
[2017-02-11 07:10] LABS: ANION GAP 10 MEQ/L (2-14); CHLORIDE 110 MEQ/L (99-109); GFR ESTIMATE (CALCULATED) 33 mL/min/; GLUCOSE 132 mg/dL (70-99); POTASSIUM 3.9 MEQ/L (3.7-5.4); SAMPLE HEMOLYSIS CHECK 0; SAMPLE ICTERIC CHECK 0; SAMPLE LIPEMIA CHECK 0; SODIUM 143 MEQ/L (136-147); UREA NITROGEN (BUN) 44 mg/dL (9-23)
[2017-02-11 08:45] VITALS: BP 159/78
[2017-02-11 12:35] VITALS: BP 137/71
[2017-02-11 17:24] VITALS: BP 158/92
[2017-02-11 19:00] VITALS: BP 135/74
[2017-02-11 23:27] VITALS: BP 137/77
[2017-02-12 04:01] VITALS: BP 158/76
[2017-02-12 06:15] LABS: ANION GAP 9 MEQ/L (2-14); CHLORIDE 108 MEQ/L (99-109); GFR ESTIMATE (CALCULATED) 35 mL/min/; GLUCOSE 116 mg/dL (70-99); POTASSIUM 3.8 MEQ/L (3.7-5.4); SAMPLE HEMOLYSIS CHECK 0; SAMPLE ICTERIC CHECK 0; SAMPLE LIPEMIA CHECK 0; SODIUM 143 MEQ/L (136-147); UREA NITROGEN (BUN) 46 mg/dL (9-23)
[2017-02-12 08:36] VITALS: BP 146/81
[2017-02-12 12:53] VITALS: BP 120/66
[2017-02-12 15:32] VITALS: BP 93/60
[2017-02-12 20:25] VITALS: BP 130/71
[2017-02-13] VITALS (8 sets, daily range): BP systolic 124–177; BP diastolic 69–84
[2017-02-14 04:45] VITALS: BP 176/85
[2017-02-14 05:15] LABS: EOSINOPHIL (%) 0.1 % (0-5); HEMATOCRIT 29.3 % (38.0-50.0); IMMATURE GRANULOCYTE (%) 2.6 % (0.0-0.7); IMMATURE GRANULOCYTE COUNT 0.3 K/uL; INSTRUMENT ABS NEUTROPHIL CT 11.8 K/uL; LYMPHOCYTE COUNT 0.4 K/uL (1.0-2.8); MCH 29.2 PG (29.0-34.0); MCHC 32.1 G/DL (30.0-36.0); MEAN PLAT.VOLUME 9.3 uM^3 (9.0-12.4); MONOCYTE COUNT 0.5 K/uL (0-0.8); NEUTROPHIL (%) 90.1 % (45-76); NEUTROPHIL COUNT 11.8 K/uL (1.8-6.4); PLATELET COUNT 153 K/uL (156-360); RBC DIS.WIDTH-CV 18.4 % (11.8-14.6); RBC DIS.WIDTH-SD 60.2 % (39-53); RED BLOOD COUNT 3.22 M/uL (4.00-5.50); WHITE BLOOD COUNT 13.1 K/uL (4.1-10.2)
[2017-02-14 05:34] LABS: POTASSIUM ND MEQ/L (3.7-5.4)
[2017-02-14 05:49] LABS: ANION GAP 7 MEQ/L (2-14); CHLORIDE 111 MEQ/L (99-109); GFR ESTIMATE (CALCULATED) 37 mL/min/; GLUCOSE 96 mg/dL (70-99); SAMPLE HEMOLYSIS CHECK 1; SAMPLE ICTERIC CHECK 0; SAMPLE LIPEMIA CHECK 0; SODIUM 146 MEQ/L (136-147); UREA NITROGEN (BUN) 48 mg/dL (9-23)
[2017-02-14 07:48] VITALS: BP 137/72
[2017-02-14 07:59] LABS: POTASSIUM 3.6 MEQ/L (3.7-5.4)
[2017-02-14 11:40] VITALS: BP 109/53
[2017-02-14 16:24] VITALS: BP 145/63
[2017-02-14 19:45] VITALS: BP 141/67
[2017-02-15 00:11] VITALS: BP 174/82
[2017-02-15 04:31] VITALS: BP 137/79
[2017-02-15 07:39] VITALS: BP 152/70
[2017-02-15] MEDS ORDERED: ATIVAN0.5 MG PO (08:50)
[2017-02-15] MEDS ORDERED: ANASPAZ0.125 MG PO (08:50)
[2017-02-15] MEDS ORDERED: AMOX TR-K CLV1 EAC4 PO (08:50)
[2017-02-15] MEDS ORDERED: MORPHINE CON20 MG/M1 PO (08:50)
[2017-02-15] MEDS ORDERED: FLORASTOR250 MG PO (08:50)
== END 2017-02-15 13:03 | disposition hospice, home (50) | DRG 871 ==
LOC: EME 10:40 → EDOF 12:45 → 4WEST 12:45 → 4EAST 12:45 → ENRESERV 12:51 → CANRESERV 12:51 → EDOF 18:09 → ENRESERV 18:11 → 4WEST 20:12 → ENRESERV 02-04 07:39 → 4WEST 02-04 08:25 → 4EAST 02-04 09:55 → ENPENDDIS 02-15 → 4EAST 02-15 13:03
PROVIDERS: Emergency Medicine; Hospitalist; Internal Medicine Critical Care Medicine; Internal Medicine Nephrology; Internal Medicine Pulmonary Disease; Physician Assistant; Radiology Diagnostic Radiology; Specialist
PROC: 5A09357 Assistance with Respiratory Ventilation, Less than 24 Consecutive Hours, Continuous Positive Airway Pressure (ICD-10-PCS; principal; 2017-01-31)
PROC: 0W9B3ZX Drainage of Left Pleural Cavity, Percutaneous Approach, Diagnostic (ICD-10-PCS; 2017-02-08)
PROC: 0BBG3ZX Excision of Left Upper Lung Lobe, Percutaneous Approach, Diagnostic (ICD-10-PCS; 2017-02-12)
DX: A41.9 Sepsis, unspecified organism (principal); G93.41 Metabolic encephalopathy; J96.01 Acute respiratory failure with hypoxia; J90 Pleural effusion, not elsewhere classified; I95.9 Hypotension, unspecified; J44.0 Chronic obstructive pulmonary disease with (acute) lower respiratory infection; J18.9 Pneumonia, unspecified organism; J44.1 Chronic obstructive pulmonary disease with (acute) exacerbation; N31.9 Neuromuscular dysfunction of bladder, unspecified; Z89.611 Acquired absence of right leg above knee; Z89.612 Acquired absence of left leg above knee; I12.9 Hypertensive chronic kidney disease with stage 1 through stage 4 chronic kidney disease, or unspecified chronic kidney disease; G82.20 Paraplegia, unspecified; Z93.59 Other cystostomy status; Z87.891 Personal history of nicotine dependence; L89.322 Pressure ulcer of left buttock, stage 2; L89.312 Pressure ulcer of right buttock, stage 2; N17.0 Acute kidney failure with tubular necrosis; T36.8X5A Adverse effect of other systemic antibiotics, initial encounter; E87.70 Fluid overload, unspecified; N28.1 Cyst of kidney, acquired; N50.89 Other specified disorders of the male genital organs; N48.89 Other specified disorders of penis; C34.82 Malignant neoplasm of overlapping sites of left bronchus and lung; C34.81 Malignant neoplasm of overlapping sites of right bronchus and lung; N18.3 Chronic kidney disease, stage 3 (moderate); E66.9 Obesity, unspecified; Z68.32 Body mass index [BMI] 32.0-32.9, adult; Y92.239 Unspecified place in hospital as the place of occurrence of the external cause; E87.6 Hypokalemia; E46 Unspecified protein-calorie malnutrition; J98.11 Atelectasis; N43.3 Hydrocele, unspecified; E83.51 Hypocalcemia; D63.8 Anemia in other chronic diseases classified elsewhere; E87.2 Acidosis
CPT/HCPCS: 31720; 36600; 70450; 71010; 71250; 72131; 74230; 76870; 76942; 77012; 80048; 80053; 80076; 80202; 81003; 82040; 82803; 82945; 83605; 83615 91; 83735; 83986 90; 84100; 84157; 84484; 84999; 85025; 85027; 85610; 85730; 87040; 87070; 87205; 87449; 87641; 88108; 88305; 88341 TC; 88342 TC; 89051; 90686; 92526 GN; 92610 GN; 92611 GN; 93005; 93306; 93971; 94002; 94003; 94010; 94640; 94640 76; 94667; 94668; 94760; 94799; 99202; 99281; 99285; J0456; J0696; J1650; J1940; J2060; J2270; J2543; J2920; J2930; J3010; J3370; J3475; J7030; J7050; J7120; J7512; J7608; P9047